=== PATIENT | female | born 2005 | race African-American/Black ===

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

== ENCOUNTER 2023-04-09 01:06 | Emergency (ER) | payer OTHER ==
[2023-04-09] MEDS ORDERED: Ketorolac Tromethamine 30 MG/ML VIAL ONE (01:51)
== END 2023-04-09 02:45 | disposition home or self-care (01) ==
LOC: ERS 01:06
DX: H11.421 Conjunctival edema, right eye (principal)
CPT/HCPCS: 96372; 99283; J1885